=== PATIENT | male | born 1935 | race Caucasian/White ===

== ENCOUNTER 2015-12-06 13:50 | Outpatient (RCR) | payer MEDICARE, BC ==
[~2015-12-06 13:50] MED LIST: ACET325T49 PO; ASP325T PO; CLCX200C PO; DCS100C PO; ENAL10TA PO; IRON1CAP10 PO; LISI20TA PO; MULT-608 PO; OXYC-12 PO; OXYC-309 PO; PNT40TEC PO; RIVA20TA2 PO; SCR1T1 PO; SIMV20TA3 PO; VERA360C2 PO
--- OUTSIDE RECORDS SUMMARY | 2015-12-06 14:05 | XMS REPORT | Continuity of Care Document ---
Author Author [facility] Organization [facility] Address Unknown Phone Unavailable Care Team Providers Care Fire Sprinkler Installer Name Role Phone Luis Camilo PCP [phone] Source Comments Some departments are not documenting in the electronic medical record. If you do not see the information that you expected, contact Release of Information in the Health Information Management department at [phone] for further assistance in locating additional records.[facility] Active Allergies and Adverse Reactions Allergen Noted Date Severity Reactions Comments Ambien 05/05/2012 SEE COMMENTS Memory loss/passing out - hallucinations Morphine 04/22/2012 HALLUCINATIONS, AGITATION Current Medications Prescription Sig. Disp. Refills Start End Date Status Date sucralfate (CARAFATE) 1 Take 1 g by mouth three Active gram tablet times daily. simvastatin (ZOCOR) 20 mg Take 20 mg by mouth at Active tablet bedtime daily. rivaroxaban (XARELTO) 20 Take 20 mg by mouth at Active mg Tab tablet bedtime daily. pantoprazole DR Take 40 mg by mouth twice Active (PROTONIX) 40 mg tablet daily. IRON POLYSACCHARIDES Take 1 Cap by mouth at Active COMPLEX (FERREX 150 PO) bedtime daily. acetaminophen (TYLENOL) Take 325-650 mg by mouth Active 325 mg tablet every 6 hours as needed. docusate (COLACE) 100 mg Take 100 mg by mouth Active capsule daily as needed. oxyCODone-acetaminophen Take 1-2 Tabs by mouth Active (PERCOCET; ENDOCET; every 4-6 hours as needed ROXICET) 5-325 mg tablet Max 12 tabs/day lisinopril (PRINIVIL; Take 1 Tab by mouth 30 Tab 1 07/23/19 Active ZESTRIL) 20 mg tablet daily. 13 oxyCODone-acetaminophen Take 1-2 Tabs by mouth 48 Tab 0 07/23/19 Active (PERCOCET) 5-325 mg every 6 hours as needed 13 tablet for Pain Earliest Fill Date: 07/22/12 Max 12 tabs/day verapamil CR (VERELAN) Take 1 Cap by mouth 30 Cap 1 07/23/19 Active 180 mg capsule daily. 13 Colchicine 0.5 mg Tab Take 1 Tab by mouth 5 Tab 0 07/23/19 Active daily. 13 Active Problems Problem Noted Date Atrial fibrillation (HCC) 07/20/2012 Overview: 07/20/12 - Left atrial appendage closure with Lariat Chronic anticoagulation, on Xarelto 07/20/2012 Paroxysmal atrial flutter (HCC) 05/04/2012 Overview: 1999 Atrial flutter; Dr. Webb, [facility]; KIMMIE Stoll (records requested) 03/11/12: s/p stroke, pt agreeable to Xarelto. 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 Sabillon increased lisinopril to 40mg daily Tests ordered 05/04/2012 Overview: 01/03/2011: Echo: EF 60%, dilated left atrium, moderate mitral regurgitation with pulmonary HTN with PA pressure of 45 mm Hg. 01/04/2011: Lexiscan stress test: subtle ischemia involving the true apex and anterior apical segment of the LV with mild hypokinesia of inferior wall; EF 46%. History of CVA (cerebrovascular accident) 05/04/2012 Overview: 03/11/12 Right sided CVA with left hemiparesis History of GI bleed 05/04/2012 Overview: 03/25/12: Colonoscopy performed due to profuse rectal bleeding requiring transfusion. Colonoscopy showed internal and external hemorrhoids, sigmoid diverticulosis. No polyps. No evidence of active bleeding. Pt was on antiplatelet therapy s/p stroke at time of bleeding. Most Recent Encounters Date Type Specialty Providers Description 12/01/2015 Telephone Oncology Kemal Champion MD Navigation Assessment Social History Tobacco Use Types Packs/Day Years Used Date Former Smoker Quit: 08/02/1999 Last Filed Vital Signs Vital Sign Reading Time Taken Blood Pressure 146/90 11/24/2012 10:51 AM CDT Pulse 74 07/22/2012 12:10 PM CDT Temperature 36.8 C (98.2 F) 07/22/2012 12:10 PM CDT Respiratory Rate - - Height 1.88 m (6' 2") 11/24/2012 11:58 AM CDT Weight 74.844 kg (165 lb) 11/24/2012 11:58 AM CDT Body Mass Index 21.18 11/24/2012 11:58 AM CDT Oxygen Saturation 96% 07/22/2012 12:10 PM CDT Plan of Care Date Type Specialty Providers Description 12/11/2015 Appointment Oncology Kemal Champion MD [address] [facility] [address] [place] [address] [phone] (Fax) 12/11/2015 Appointment Anesthesiology Health Maintenance Due Date Last Done Comments Physical (Comprehensive) 1940 Exam Pertussis Vaccine 1944 Tetanus Vaccine 1950 Shingles Vaccine 1993 Prevnar/Pneumovax (#1) 1998 Influenza Vaccine 11/02/2015 Results from Last 3 Months Not on file
== END 2016-03-05 | disposition home or self-care (01) ==
LOC: ONC 13:50
PROVIDERS: ATTEND Radiology Radiation Oncology
DX: C61 Malignant neoplasm of prostate (principal)
CPT/HCPCS: 99214

== ENCOUNTER → 2018-03-23 | Outpatient (CLI) | payer MEDICARE, BC | LOC: WOUNDCARE 09:03 | PROVIDERS: ATTEND Surgery | DX: L89.623 Pressure ulcer of left heel, stage 3 (principal); I70.244 Atherosclerosis of native arteries of left leg with ulceration of heel and midfoot; J44.9 Chronic obstructive pulmonary disease, unspecified; R54 Age-related physical debility; E44.0 Moderate protein-calorie malnutrition | CPT/HCPCS: 99213 ==

== ENCOUNTER → 2018-03-28 | Outpatient (CLI) | payer MEDICARE, BC | LOC: CVS 11:13 | PROVIDERS: ATTEND Family Medicine | DX: D64.9 Anemia, unspecified (principal); N18.9 Chronic kidney disease, unspecified | CPT/HCPCS: 82274 ==

== ENCOUNTER → 2018-03-28 | Outpatient (CLI) | payer MEDICARE, BC ==
[2018-03-28 16:46] LABS: BASOPHILS % (AUTO) 1 % (0-10); EOSINOPHILS # (AUTO) 0.8 10^3/uL (0.0-0.3); EOSINOPHILS % (AUTO) 14 % (0-10); HEMATOCRIT 27 % (40-54); HEMOGLOBIN 8.8 G/DL (13.3-17.7); LYMPHOCYTES # (AUTO) 1.2 X 10^3 (1.0-4.0); LYMPHOCYTES % (AUTO) 22 % (12-44); MEAN CORPUSCULAR HEMOGLOBIN 31 PG (25-34); MEAN CORPUSCULAR HGB CONC 33 G/DL (32-36); MEAN CORPUSCULAR VOLUME 97 FL (80-99); MONOCYTES # (AUTO) 0.4 X 10^3 (0.0-1.0); MONOCYTES % (AUTO) 7 % (0-12); NEUTROPHILS # (AUTO) 3.2 X 10^3 (1.8-7.8); NEUTROPHILS % (AUTO) 57 % (42-75); PLATELET COUNT 422 10^3/uL (130-400); RED CELL DISTRIBUTION WIDTH 13.8 % (10.0-14.5); WHITE BLOOD COUNT 5.5 10^3/uL (4.3-11.0)
[2018-03-28 17:08] LABS: BAND NEUTROPHILS 2 %; BASOPHILS % (MANUAL) 2 %; EOSINOPHILS % (MANUAL) 11 %; LYMPHOCYTES % (MANUAL) 11 %; MONOCYTES % (MANUAL) 4 %; NEUTROPHILS % (MANUAL) 59 %; PLATELET CLUMPS SLIGHT; REACTIVE LYMPHOCYTES 11 %; SMUDGE CELLS SLIGHT
[2018-03-28 17:09] LABS: ACANTHOCYTES SLIGHT; ELLIPT/OVALOCYTES SLIGHT; HYPOCHROMASIA SLIGHT; POIKILOCYTOSIS SLIGHT; ROULEAUX SLIGHT; STOMATOCYTES SLIGHT
== END ==
LOC: CVS 16:33
PROVIDERS: ATTEND Family Medicine
DX: D64.9 Anemia, unspecified (principal); N18.9 Chronic kidney disease, unspecified
CPT/HCPCS: 85007; 85027

== ENCOUNTER → 2018-03-30 | Outpatient (CLI) | payer MEDICARE, BC | LOC: WOUNDCARE 10:08 | PROVIDERS: ATTEND Surgery | DX: L89.623 Pressure ulcer of left heel, stage 3 (principal); I69.954 Hemiplegia and hemiparesis following unspecified cerebrovascular disease affecting left non-dominant side; E44.0 Moderate protein-calorie malnutrition; J44.9 Chronic obstructive pulmonary disease, unspecified | CPT/HCPCS: 11042; 87070; 87075; 87205 ==

== ENCOUNTER → 2018-04-06 | Outpatient (CLI) | payer MEDICARE, BC | LOC: WOUNDCARE 10:14 | PROVIDERS: ATTEND Surgery | DX: L89.623 Pressure ulcer of left heel, stage 3 (principal); I69.954 Hemiplegia and hemiparesis following unspecified cerebrovascular disease affecting left non-dominant side; J44.9 Chronic obstructive pulmonary disease, unspecified; E44.0 Moderate protein-calorie malnutrition | CPT/HCPCS: 11042 ==

== ENCOUNTER → 2018-04-13 | Outpatient (CLI) | payer MEDICARE, BC | LOC: WOUNDCARE 10:15 | PROVIDERS: ATTEND Surgery | DX: L89.623 Pressure ulcer of left heel, stage 3 (principal); I69.954 Hemiplegia and hemiparesis following unspecified cerebrovascular disease affecting left non-dominant side; E44.0 Moderate protein-calorie malnutrition; J44.9 Chronic obstructive pulmonary disease, unspecified | CPT/HCPCS: 11042 ==

== ENCOUNTER → 2018-04-20 | Outpatient (CLI) | payer MEDICARE, BC | LOC: WOUNDCARE 10:14 | PROVIDERS: ATTEND Surgery | DX: L89.623 Pressure ulcer of left heel, stage 3 (principal); L89.613 Pressure ulcer of right heel, stage 3; I69.954 Hemiplegia and hemiparesis following unspecified cerebrovascular disease affecting left non-dominant side; E44.0 Moderate protein-calorie malnutrition; J44.9 Chronic obstructive pulmonary disease, unspecified | CPT/HCPCS: 11042; 87070; 87077; 87186; 87205 ==

== ENCOUNTER → 2018-04-27 | Outpatient (CLI) | payer MEDICARE, BC | LOC: WOUNDCARE 10:00 | PROVIDERS: ATTEND Surgery | DX: L89.623 Pressure ulcer of left heel, stage 3 (principal); L89.613 Pressure ulcer of right heel, stage 3; E44.0 Moderate protein-calorie malnutrition; I69.954 Hemiplegia and hemiparesis following unspecified cerebrovascular disease affecting left non-dominant side; J44.9 Chronic obstructive pulmonary disease, unspecified | CPT/HCPCS: 11042 ==

== ENCOUNTER → 2018-05-04 | Outpatient (CLI) | payer MEDICARE, BC | LOC: WOUNDCARE 10:09 | PROVIDERS: ATTEND Surgery | DX: L89.623 Pressure ulcer of left heel, stage 3 (principal); L89.613 Pressure ulcer of right heel, stage 3; E44.0 Moderate protein-calorie malnutrition; I69.954 Hemiplegia and hemiparesis following unspecified cerebrovascular disease affecting left non-dominant side; J44.9 Chronic obstructive pulmonary disease, unspecified | CPT/HCPCS: 11042 ==

== ENCOUNTER → 2018-05-11 | Outpatient (CLI) | payer MEDICARE, BC | LOC: WOUNDCARE 10:13 | PROVIDERS: ATTEND Surgery | DX: L89.623 Pressure ulcer of left heel, stage 3 (principal); I69.954 Hemiplegia and hemiparesis following unspecified cerebrovascular disease affecting left non-dominant side; E44.0 Moderate protein-calorie malnutrition; J44.9 Chronic obstructive pulmonary disease, unspecified | CPT/HCPCS: 11042 ==

== ENCOUNTER → 2018-05-18 | Outpatient (CLI) | payer MEDICARE, BC | LOC: WOUNDCARE 09:50 | PROVIDERS: ATTEND Surgery | DX: I70.244 Atherosclerosis of native arteries of left leg with ulceration of heel and midfoot (principal); L89.624 Pressure ulcer of left heel, stage 4; I69.954 Hemiplegia and hemiparesis following unspecified cerebrovascular disease affecting left non-dominant side; E44.0 Moderate protein-calorie malnutrition; J44.9 Chronic obstructive pulmonary disease, unspecified | CPT/HCPCS: 11042 ==

== ENCOUNTER → 2018-05-25 | Outpatient (CLI) | payer MEDICARE, BC | LOC: WOUNDCARE 09:39 | PROVIDERS: ATTEND Surgery | DX: L89.624 Pressure ulcer of left heel, stage 4 (principal); I70.244 Atherosclerosis of native arteries of left leg with ulceration of heel and midfoot; E44.0 Moderate protein-calorie malnutrition; I69.954 Hemiplegia and hemiparesis following unspecified cerebrovascular disease affecting left non-dominant side; J44.9 Chronic obstructive pulmonary disease, unspecified | CPT/HCPCS: 11042 ==

== ENCOUNTER 2018-11-30 12:56 | Outpatient (RCR) | payer MEDICARE, BC | END 2019-02-28 | disposition home or self-care (01) | LOC: CARD 12:56 | PROVIDERS: ATTEND Internal Medicine Cardiovascular Disease | DX: I08.3 Combined rheumatic disorders of mitral, aortic and tricuspid valves (principal); I10 Essential (primary) hypertension; I27.20 Pulmonary hypertension, unspecified; Z96.651 Presence of right artificial knee joint | CPT/HCPCS: 93306 ==